=== PATIENT | female | born 1990 | race African-American/Black ===

== ENCOUNTER 2019-07-08 02:30 | Inpatient (IN) | payer OTHER, SELFPAY ==
[2019-07-08] VITALS (57 sets, daily range): BP systolic 101–144; BP diastolic 31–92; PULSE 74–129; RESP 16–18; TEMP 36.8–37.7; O2SAT 99–100; BMI 28.4
[2019-07-08] MEDS: LACTATED RINGERS 1,000 ML 125 ML IV CONT ×2 (03:14→05:31)
[2019-07-08] MEDS: AMPICILLIN 2 GM/NS 100 ML 2 GM/100 ML BAG IVPB (03:15)
[2019-07-08 03:22] LABS: Basophils Percent Auto 0.3 % (0.2-1.2); Eosinophils Absolute Auto 0.1 K/mm3 (0-0.3); Eosinophils Percent Auto 1.2 % (0-4.4); Hematocrit 36.6 % (37.0-47.0); Immature Granulocyte Absolute 0.04 K/mm3 (0.00-0.031); Immature Granulocyte Percent A 0.4 % (0-0.5); Lymphocytes Absolute Auto 1.98 K/mm3 (0.9-3.2); Lymphocytes Percent Auto 22.2 % (18.3-44.2); Mean Corpuscular HGB Conc 32.8 g/dl (32-36); Mean Corpuscular Hemoglobin 27.1 pg (26-34); Mean Corpuscular Volume 82.8 fl (80-100); Mean Platelet Volume 12.5 fl (7.4-10.4); Monocytes Absolute Auto 0.6 K/mm3 (0.1-0.6); Monocytes Percent Auto 6.6 % (2.6-8.5); Neutrophils Absolute Auto 6.2 K/mm3 (1.3-6.7); Neutrophils Percent Auto 69.3 % (45.5-73.1); Platelet Count Result 171 k/mm3 (150-375); Red Blood Count 4.42 M/mm3 (4.2-5.4); Red Cell Distribution Width 14.3 % (11.5-14.5); White Blood Count 8.9 K/mm3 (4.5-10.0)
--- NOTE | 2019-07-08 03:23 | LDADM ---
This patient, Doris Oliveros, was admitted to Labor/Delivery/Recovery 106 on 07/08/19 at 02:30. Plans for labor, pain management and were discussed with patient. Patient/family oriented to hospital policies and general routines including ID bracelet, bed and alarms, visiting hours, pain management, procedures, bathroom and other care routines, personal items, smoking policy, room service/diet and guest tray routines, security routines, and visiting hours. Patient/Family are encouraged to report perceived risks to care and to ask questions if they do not understand what they are told or what they should do. See OBIX for further documentation.
[2019-07-08 03:44] LABS: Large Platelets Present; Ovalocytes 1+ (NORMAL); Platelet Estimate Adequate (Adequate)
--- NOTE | 2019-07-08 04:25 | HP_ITS ---
DATE OF SERVICE: 07/08/2019 CHIEF COMPLAINT: Contractions. HISTORY OF PRESENT ILLNESS: A 28-year-old G3, P2-0-0-2 at 39 weeks and 1 day gestation presenting to Labor and delivery with contractions that started about 3 hours ago. Contractions are irregular and painful. Denies leaking of fluid. Otherwise, she denies headaches, blurred vision, chest pain, shortness of breath, nausea, vomiting, diarrhea, constipation, vaginal irritation, or dysuria. PAST MEDICAL HISTORY: HSV. SURGICAL HISTORY: None. SOCIAL HISTORY: Denies tobacco, alcohol, or drugs. MANAGER SPA HISTORY: G3, P2, with 2 normal spontaneous vaginal deliveries. CURRENT MEDICATIONS: vitamins, acyclovir. ALLERGIES: NO KNOWN DRUG ALLERGIES. REVIEW OF SYSTEMS: 10-point review of systems completed. Pertinent positives and negatives as per the HPI. PHYSICAL EXAMINATION: GENERAL: In no acute distress. Alert and oriented x3. PSYCHIATRIC: Appropriate mood and affect. CARDIOVASCULAR: Regular rate. RESPIRATORY: Nonlabored breathing. ABDOMEN: Gravid, nontender. REVIEW OF LABS: GBS positive. ASSESSMENT: 1. 39-week term gestation. 2. Active labor. 3. GBS positive. PLAN: Admit to Labor and Delivery. Antibiotics for GBS prophylaxis and anticipate vaginal delivery. D I MT: Mary
[2019-07-08] MEDS: OXYTOCIN 30 UNITS/NS 500 ML 30 UNITS/500 ML BAG 999 UNITS IV CONT (06:15)
--- NOTE | 2019-07-08 06:23 | PM.OBPRVD ---
OB - Delivery Note Procedure Delivery date: 07/08/19 Procedure: Intrapartal events: None Induction method: none Delivery monitor: external FHT Route of delivery: Laceration description: Periurethral - 1st Degree Specimen: No Estimated blood loss (mL): 200 Anesthesia type: Epidural Baby Date of : 07/[birth year] Time of : 06:10 Weeks of gestation at delivery: 40 Infant gender: Female Weight (pounds): 7 Weight (ounces): 2 presentation: vertex position: Right Occiput Anterior Placenta delivery description: Spontaneous cord vessel description: 3 Vessels score one minute: 9 score five minutes: 9
[2019-07-08] MEDS: OXYTOCIN 30 UNITS/NS 500 ML 30 UNITS/500 ML BAG 125 UNITS IV CONT ×2 (06:50→07:13)
--- NOTE | 2019-07-08 07:16 | OP_ITS ---
DATE OF PROCEDURE: 07/08/2019 PROCEDURE: Normal spontaneous vaginal delivery. PREDELIVERY DIAGNOSES: 1. Term gestation . 2. Active labor. 3. GBS positive. POST DELIVERY DIAGNOSES: 1. Term gestation . 2. Active labor. 3. GBS positive. 4. Normal spontaneous vaginal delivery. ANESTHESIA: Epidural. ESTIMATED BLOOD LOSS: 200 mL. COMPLICATIONS: None apparent. FINDINGS: 1. Single live female , born on July 08, 2017, at 0610. Weight 7 pounds 2 ounces. 2. Apgars 9 and 9. 3. Periurethral laceration, no repair needed. SPECIMEN: Placenta, cord blood. BRIEF HISTORY: A 28-year-old, G3, P2, emergently came to Labor and Delivery in active labor. care uncomplicated. DESCRIPTION OF PROCEDURE: Once the patient was completed being dilated and ready to push, the labor bed was broken down and her legs were placed in stirrups for support with contractions and maternal efforts, the presented in SHIMON position. The head was delivered. Gentle downward traction on it was applied and anterior shoulder delivered without incident followed by the posterior shoulder and the rest of the body. The was vigorous and crying, so delayed cord clamping of approximately 1 minute was performed. Cord was clamped and cut. Cord blood collected. Gentle traction on the umbilical cord applied and the placenta was delivered spontaneously. Fundal massage applied. IV Pitocin administered. Exam was performed to identify any lacerations. A periurethral laceration was noted. Hemostasis was obtained with pressure. Once good hemostasis was confirmed, this completed the procedure. All instrument and sponge counts were correct at the end of the procedure. Patient tolerated the procedure well and is resting in the labor room. D I MT: Mary
[2019-07-08] MEDS: IBUPROFEN 600 MG TABLET PO ×2 (08:52→16:32)
[2019-07-08] MEDS: BENZOCAINE 20% AER SPR (*SP) 56 GM CAN 1 SPRAY TOPICAL (09:12)
--- NOTE | 2019-07-08 09:45 | PC.NURSE ---
Consulted with patient, mother reports she breast/bottle fed last child. He plans are to exclusively breastfeed this child. Reviewed infant feeding cues, frequencies, duration of feedings, feeding elimination flow sheet, and signs of adequate intake. Demonstrated stimulation techniques to wake for feeding. Assisted with to breast. Reviewed positioning/alignment in cross cradle, holding breast in U hold and guided asymmetrical latch on. Discussed the rational for each. Max assist for infant to latch correctly. tends to keep tongue up and not allow for correct latch. Infant nursed eagerly, with steady draws and frequent swallowing noted. Reviewed signs of a correct latch, effective nursing and suck swallow ratio. was able to maintain latch without discomfort to mother. Nipple care reviewed. Instructed mother to call out for RN assistance if she is unable to latch infant for feeding or she has discomfort with nursing. Instructed feeding should be initiated three hours from start of last feeding or if feeding cues are noted before. Mother voiced understanding of information shared.
--- NOTE | 2019-07-08 10:38 | PC.NURSE ---
Patient transferred to post room # wheelchair. Support person present. Oriented to unit, room, information board, rooming in, admission packet and security measures. Patient verbalizes understanding.
--- NOTE | 2019-07-08 13:01 | NBADM ---
This patient Doris Oliveros was born on [birth year] at 02:30. Apgars 9 /9 .
--- NOTE | 2019-07-08 13:05 | PC.NURSE ---
Mother called out for assist with feeding. Suggested mother initiate waking to start feeding. Demonstrated stimulation techniques to wake for feeding. Assisted with to breast. Reviewed positioning/alignment in cross cradle, holding breast in U hold and guided asymmetrical latch on. Discussed the rational for each. Max assist for infant to latch correctly. tends to keep tongue up and not allow for correct latch. nursed eagerly, with steady draws and frequent swallowing noted. Reviewed signs of a correct latch, effective nursing and suck swallow ratio. Infant was able to maintain latch without discomfort to mother. Nipple care reviewed. Instructed mother to call out for RN assistance if she is unable to latch infant for feeding or she has discomfort with nursing. Instructed feeding should be initiated three hours from start of last feeding or if feeding cues are noted before. Mother voiced understanding of information shared.
[2019-07-08 16:06] LABS: Rapid Plasma Reagin Non-Reactive (NonReactive)
[2019-07-08] MEDS: WITCH HAZEL 40 PADS 1 PAD TOPICAL (16:32)
[2019-07-08] MEDS: DOCUSATE SODIUM 100 MG CAPSULE PO (16:32)
--- NOTE | 2019-07-08 21:00 | PC.NURSE ---
RN set patient up with a breast pump and instructed on pt on how to use it. Pt stated she felt comfortable with using it and stated she would reach out if she had any questions.
[2019-07-09] MEDS: IBUPROFEN 600 MG TABLET PO ×3 (02:02→16:41)
[2019-07-09 05:29] LABS: Hematocrit 35.9 % (37.0-47.0); Hemoglobin 11.2 g/dL (12.0-15.0)
--- NOTE | 2019-07-09 07:53 | WPDANLDPN2 ---
Anes-Prog Note L&D Date/Time: 07/09/19 07:53 Comfortable throughout: labor and delivery Neuraxial method: epidural Epidural/Spinal procedure site: clean & non-tender Neuro status: Neuro function grossly intact. Cardiovascular status: normal Respiratory status: normal Airway patency: baseline Mental status: baseline Post-Op hydration status: normal Vital Signs: Last Vital Signs Temp 36.8 C 07/08/19 19:48 Pulse 75 07/08/19 19:48 Resp 16 07/08/19 19:48 BP 112/70 07/08/19 19:48 Pulse Ox 100 07/08/19 06:09 Post-procedural complaints: none Patient feedback: Patient satisfied with anesthetic care.
[2019-07-09 08:00] VITALS: BP 120/64; PULSE 71; RESP 18; TEMP 36.8
[2019-07-09] MEDS: BENZOCAINE 20% AER SPR (*SP) 56 GM CAN 1 SPRAY TOPICAL (08:40)
[2019-07-09] MEDS: WITCH HAZEL 40 PADS 1 PAD TOPICAL (08:40)
[2019-07-09] MEDS: MULTIVIT/MIN/PREN/FOL AC/IRON TABLET 1 TAB PO (08:41)
[2019-07-09] MEDS: DOCUSATE SODIUM 100 MG CAPSULE PO ×2 (08:41→16:41)
--- NOTE | 2019-07-09 08:44 | P.PNOB_ITS ---
OB - PN: Subj Subjective Date/time seen: 07/09/19 08:44 Interval history: 28yo s/p on 07/07. Doing well. Pain is well controlled. Lochia decreasing. Denies fevers, chills, nauseam vomiting. Patient comments: no complaints, pain well controlled and tolerating diet [place] baby status: doing well [place] feeding status: exclusively breast feeding OB - PN: Obj Data Labs CBC & Chem 7: 07/09/19 04:23 Labs: Laboratory Results - last 24 hr 07/08/19 07/09/19 03:08 04:23 Hgb 11.2 L Hct 35.9 L RPR Non-reactive OB - PN A/P Assessment and Plan (1) (normal spontaneous vaginal delivery): Code(s): O80 - Encounter for full-term uncomplicated delivery Status: Acute Time Spent With Patient Time: Total time spent is greater than 50% in coordination of care (as documented) at patient's floor/unit and/or counseling patient: Review of Systems Review of Systems: All systems reviewed & are unremarkable except as noted in HPI and below Exam Const: General: comfortable, no acute distress, alert and awake Orie ntation/consciousness: patient oriented x3 Resp: Effort & Inspection: normal respiratory effort Cardio: Rate: regular rate GI: Other: soft, nontender, nondistended, fundus firm Psych: Appearance: grossly normal Mental Status: mental status grossly normal Affect: normal affect Attitude: cooperative Judgement: Good judgement present (Psych)
--- NOTE | 2019-07-09 08:46 | PM.OBDSVD ---
DS: Diagnosis Discharge Diagnosis (1) (normal spontaneous vaginal delivery): Code(s): O80 - Encounter for full-term uncomplicated delivery Status: Acute OB - DS: Summary Hospital Course Hospital Course: 28yo Admitted for active labor, had uncomplicated . course uncomplicated, progressed as expected. OB Procedures : None OB Procedures Intrapartum: Spontaneous Vag Delivery OB Procedures: : None Peripartum Data Infant Delivery Method: Natural Vaginal Laceration description: Periurethral - 1st Degree complications: none Status at Discharge Overall status at discharge: patient is progressing back to baseline Time Spent with Patient Time attestation: Total time spent providing and/or coordinating discharge services: Exam Const: General: comfortable, no acute distress, alert and awake Orientation/consciousness: patient oriented x3 Resp: Effort & Inspection: normal respiratory effort Cardio: Rate: regular rate GI: Other: soft, nontender, nondistended, fundus firm Neuro: General: patient oriented x3 Psych: Appearance: grossly normal Mental Status: mental status grossly normal Affect: normal affect Attitude: cooperative Judgement: Good judgement present (Psych) DS: Data Data Completed and Pending Labs on day of discharge: Labs from last 24 hours 07/09/19 07/08/19 04:23 03:08 Hgb 11.2 L Hct 35.9 L RPR Non-reactive Discharge Plan Discharge Attending physician on discharge: Smiht Ventura Discharging Clinician: Smith Ventura Patient Disposition: Home, Self-Care Activity: as tolerated Diet: regular Patient Instructions: Antibiotic Form Stand Alone Forms: General Discharge Information Follow-up/Referrals: Smith Ventura DO [Physician] - Discharge Medications: New docusate sodium 100 mg Capsule 100 mg PO BID PRN (Reason: Constipation) Qty: 60 RF: 0 ibuprofen 600 mg Tablet 600 mg PO Q6H PRN (Reason: Cramping) Qty: 90 RF: 0 polysaccharide iron complex 150 mg iron Capsule 150 mg PO BIDWM Qty: 60 RF: 0 Date of admission: 07/08/19 02:30 Primary Care Provider: PHYSICIAN,CERTIFICATION ENGINEER Admitting Provider: Smith Ventura Attending physician on admission: Smith Ventura
--- NOTE | 2019-07-09 10:50 | PC.NURSE ---
Consult with pt., mother states she has bottle fed during the night. Mother states she is unsure if she will put infant to breast. Offered assist with feedings, requested mother call out as needed.
[2019-07-09 19:40] VITALS: BP 118/69; PULSE 77; RESP 16; TEMP 37
[2019-07-10] MEDS: IBUPROFEN 600 MG TABLET PO ×2 (02:41→07:52)
[2019-07-10] MEDS: BENZOCAINE 20% AER SPR (*SP) 56 GM CAN 1 SPRAY TOPICAL (07:52)
[2019-07-10] MEDS: WITCH HAZEL 40 PADS 1 PAD TOPICAL (07:52)
[2019-07-10] MEDS: DOCUSATE SODIUM 100 MG CAPSULE PO (07:52)
[2019-07-10] MEDS: MULTIVIT/MIN/PREN/FOL AC/IRON TABLET 1 TAB PO (07:52)
[2019-07-10] MEDS: LANOLIN (LANSINOH) 7.5 GM CREAM 1 APPLIC TOPICAL (07:53)
[2019-07-10 08:00] VITALS: BP 136/93; PULSE 70; RESP 18; TEMP 36.6
--- NOTE | 2019-07-10 10:30 | PC.NURSE ---
Mother is able to independently latch infant with appropriate positioning/alignment. Mother will supplement at times. She denies any nipple discomfort, is feeding as required and waking to feed if needed. has had several effective feedings in the past 24 hours, and is currently meeting outcomes for weight, output, jaundice and feeding frequencies. Mother states she feels confident to continue current at home. Reviewed transition to breast milk, signs of adequate intake, and engorgement/relief. Instructed to call ICP if intake/output less than required. Reviewed regular medications mother is taking. Information provided per Allyssa. Reviewed community resources on the [facility] website and in the Mom/Baby guide. Information on outpatient services provided. Mother has no further questions at this time.
== END 2019-07-10 12:39 | disposition home or self-care (01) | DRG 560 ==
LOC: ANHLDR 03:38 → ANHOB2 09:19
PROVIDERS: Admitting Provider Obstetrics & Gynecology; Visit Provider Obstetrics & Gynecology
DX: O99.824 Streptococcus B carrier state complicating childbirth (principal); Z37.0 Single live birth; Z3A.39 39 weeks gestation of pregnancy; O36.8330 Maternal care for abnormalities of the fetal heart rate or rhythm, third trimester, not applicable or unspecified; O69.82X0 Labor and delivery complicated by other cord entanglement, without compression, not applicable or unspecified; O98.52 Other viral diseases complicating childbirth; B00.9 Herpesviral infection, unspecified; O71.82 Other specified trauma to perineum and vulva
CPT/HCPCS: 36415; 85014; 85018; 85025; 86592; 86850; 86900; 86901; A9270; J0290; J2590; J2795; J7120

== ENCOUNTER 2023-04-02 17:18 | Emergency (ER) | payer OTHER, SELFPAY ==
--- NOTE | ~2023-04-02 | US_ITS ---
EXAMINATION: US OB <=14 wk fetus w TV DATE: 04/02/2023 19:22 INDICATION: Right lower quadrant pain. Recent diagnosis of ectopic . Patient treated with me thotrexate. TECHNIQUE: Real-time transabdominal and transvaginal obstetric ultrasound. FINDINGS: No prior studies for comparison. The uterus measures 11.1 x 6 x 6.6 cm. Endometrium measures 7 mm. No definite intrauterine gestationa l sac is seen. In the right adnexa there is a cystic structure with suggestion of decidual reaction m easuring 1.8 x 1.7 x 1.5 cm. In the cornua of the uterus there is a hypoechoic structure, nonspecific . In the left ovary there are hypoechoic cystic structures with low level internal echoes, largest me asuring 3 cm. Trace free fluid in the pelvis. IMPRESSION: 1. No intrauterine identified. Cystic structure of the left ovary measures 3 cm. No definit e pole identified. Hypoechoic structure present in the cornua of the uterus which is nonspecifi c. No definitive gestational sac is seen. Differential diagnosis includes ectopic , failed p regnancy and very early intrauterine . Cannot exclude cornual . Recommend follow-up with serial quantitative beta-hCG levels and ultrasound as clinically warranted. Reviewed, dictated and finalized at location A. DER SETTER IMPRESSION: 1. No intrauterine identified. Cystic structure of the left ovary rakan sures 3 cm. No definite pole identified. Hypoechoic structure present in the cornua of the uterus which is nonspecific. No definitive gestational sac is seen. Differential diagnosis includes ectopic , failed and very early intrauterine . Cannot exclude cornual . Recommend follow-up with serial quantitative beta-hCG levels and ultrasound as clinically warranted.
[2023-04-02 17:41] VITALS: BP 131/94; PULSE 71; RESP 20; TEMP 36.6; O2SAT 100
--- NOTE | 2023-04-02 18:05 | ED.PREGNANCY ---
HPI - General Chief complaint: FIELD STAFF <Amara Lopez PA-C - Last Filed: 04/02/23 18:26> Stated complaint: abd pain <KVNG Benavides Last Filed: 04/02/23 18:26> Time Seen by Provider: 04/02/23 20:48 <KVNG Benavides Last Filed: 04/02/23 18:26> Source: patient <KVNG Benavides Last Filed: 04/02/23 18:26> Mode of arrival: ambulatory <KVNG Benavides Last Filed: 04/02/23 18:26> Limitations: no limitations <KVNG Benavides Last Filed: 04/02/23 18:26> History of Present Illness HPI Narrative: Patient is a 32-year-old female who presents the ED with report of lower abdominal pain. Patient reports having a positive home test on 02/26. She began having bleeding that day with clots and tissue like material. She assumed she was miscarrying. She has been 8-9 times. She has 4 living children. Hx of 2 previous elective abortions. She sees Laura Benoit with OBGYN in [place], [place]. She states she developed pain in her lower abdomen last week. She was seen at [facility] on and diagnosed with R sided cornual ectopic . Her HCG at that time was 35. She was given IM methotrexate at that time, but states she has not had any bleeding since then. Developed worsening pain today in lower abdomen and was advised to come to the ED. Denies N/V, fevers. <KVNG Benavides Last Filed: 04/02/23 18:26> Related Data Allergies/Adverse reactions: Allergies Allergy/AdvReac Type Severity Reaction Status Date / Time No Known Allergies Allergy Unverified 04/25/18 11:25 <KVNG Benavides Last Filed: 04/02/23 18:26> Review of Systems Review of Systems: CONSTITUTIONAL: Denies fever, chills, or sweats. GASTROINTESTINAL: See HPI. GENITOURINARY: See HPI. <Amara Lopez PA-C - Last Filed: 04/02/23 18:26> All systems reviewed & are unremarkable except as noted in HPI and below <Amara Lopez PA-C - Last Filed: 04/02/23 18:26> [facility] Social History Social History: Social History Smoking status: Former smoker Second hand tobacco smoke exposure: No Substance use: never Gender identity (if verbalized by the patient): Female Spiritual care concerns: No <Amara Lopez PA-C - Last Filed: 04/02/23 18:26> Exam Narrative: GENERAL: Well appearing, obese with BMI of 30.7, non-toxic, in no acute distress. HEAD: Normocephalic, atraumatic. RESPIRATORY: Airway patent, respirations nonlabored. CARDIOVASCULAR: Regular rate and rhythm without murmurs, rubs, or gallops. ABDOMINAL: Soft, tenderness in bilateral lower quadrant/pelvic regions, worse on right. Normoactive BS. MUSCULOSKELETAL: Moves all extremities. No gross deformities. SKIN: Warm, dry, normal color. NEURO: A&O X3. Speech clear. Cranial nerves II-XII grossly intact. No ataxic movements. PSYCHIATRIC: Appropriate mood and affect. Normal interaction. <Amara Lopez PA-C - Last Filed: 04/02/23 18:26> Course OIL FURNACE INSTALLER/PA Physician Supervision This visit was performed by both the physician and an APC. I performed all aspects of the MDM as documented <Francis Montoya MD - Last Filed: 04/02/23 21:38> Vital Signs Vital signs: Vital Signs Temperature 36.6 C 04/02/23 17:41 Pulse Rate 71 04/02/23 17:41 Respiratory Rate 20 04/02/23 17:41 Blood Pressure 131/94 H 04/02/23 17:41 Pulse Oximetry 100 04/02/23 17:41 Oxygen Delivery Room Air 04/02/23 17:41 Temperature 36.6 C 04/02/23 17:41 Pulse Rate 71 04/02/23 17:41 Respiratory Rate 20 1218/23 17:41 Blood Pressure 131/94 H 04/02/23 17:41 Pulse Oximetry 100 04/02/23 17:41 Oxygen Delivery Room Air 04/02/23 17:41 <Amara Lopez PA-C - Last Filed: 04/02/23 18:26> Vital Signs Temperat
[2023-04-02 18:33] LABS: Basophils Percent Auto 0.4 % (0.2-1.2); Eosinophils Absolute Auto 0.1 K/mm3 (0-0.3); Eosinophils Percent Auto 1.7 % (0-4.4); Hematocrit 39.3 % (37.0-47.0); Hemoglobin 12.2 g/dL (12.0-15.0); Immature Granulocyte Absolute 0.01 K/mm3 (0.00-0.031); Immature Granulocyte Percent A 0.2 % (0-0.5); Lymphocytes Absolute Auto 1.45 K/mm3 (0.9-3.2); Lymphocytes Percent Auto 27.9 % (18.3-44.2); Mean Corpuscular Hemoglobin 26.5 pg (26-34); Mean Corpuscular Volume 85.4 fl (80-100); Mean Platelet Volume 11.1 fl (7.4-10.4); Monocytes Absolute Auto 0.2 K/mm3 (0.1-0.6); Monocytes Percent Auto 4.6 % (2.6-8.5); Neutrophils Absolute Auto 3.4 K/mm3 (1.3-6.7); Neutrophils Percent Auto 65.2 % (45.5-73.1); Platelet Count Result 273 k/mm3 (150-375); Red Cell Distribution Width 13.6 % (11.5-14.5); White Blood Count 5.2 K/mm3 (4.5-10.0)
[2023-04-02 18:55] LABS: Beta HCG Quantitative 19.45 mIU/ML
[2023-04-02 20:48] VITALS: O2SAT 100
[2023-04-02 21:02] VITALS: PULSE 72; RESP 15; O2SAT 100
[2023-04-02 21:15] VITALS: PULSE 74; RESP 15; O2SAT 100
[2023-04-02 21:30] VITALS: PULSE 71; RESP 15
[2023-04-02 21:45] VITALS: BP 129/64; PULSE 70; RESP 14; O2SAT 100
== END 2023-04-02 22:00 | disposition home or self-care (01) ==
PROVIDERS: Physician Assistant; Emergency Provider Emergency Medicine; PCP Physician Assistant
DX: O00.80 Other ectopic pregnancy without intrauterine pregnancy (principal); N83.202 Unspecified ovarian cyst, left side
CPT/HCPCS: 36415; 76801; 76817; 84702; 85025; 85461; 86850; 86900; 86901; 99284

== ENCOUNTER 2023-12-25 15:38 | Emergency (ER) | payer OTHER, SELFPAY ==
[2023-12-25 15:48] VITALS: BP 133/72; PULSE 68; RESP 18; TEMP 36.6; O2SAT 100
== END 2023-12-25 16:55 | disposition left against medical advice (07) ==
PROVIDERS: PCP Physician Assistant
DX: R10.9 Unspecified abdominal pain (principal)
CPT/HCPCS: 99199